=== PATIENT | male | born 1995 ===

== ENCOUNTER → 2020-04-10 | Outpatient (REF) | payer OTHER ==
[2020-04-10 23:56] LABS: CHLAMYDIA DNA AMPLIFICATION NEGATIVE (NEGATIVE); GC DNA AMPLIFICATION NEGATIVE (NEGATIVE)
== END ==
LOC: M LAB 22:06
PROVIDERS: ATTEND Physician Assistant
DX: Z11.3 Encounter for screening for infections with a predominantly sexual mode of transmission (principal)

== ENCOUNTER → 2020-05-12 | Outpatient (REF) | payer OTHER ==
[2020-05-12 21:52] LABS: CHLAMYDIA DNA AMPLIFICATION NEGATIVE (NEGATIVE); GC DNA AMPLIFICATION NEGATIVE (NEGATIVE)
== END ==
LOC: M WUC 19:51
PROVIDERS: ATTEND Physician Assistant
DX: R30.0 Dysuria (principal)